=== PATIENT | female | born 1980 | race Caucasian/White ===

== ENCOUNTER 2018-08-16 16:18 | Emergency (ER) | payer OTHER ==
[~2018-08-16] VITALS: Ht 154.9 cm; Wt 72.1 kg
[2018-08-16 16:48] VITALS: Ht 154.9 cm; Wt 72.1 kg
[2018-08-16 18:11] LABS: BASOPHIL % 0.7 % (0-2); PLATELET COUNT 324 x10^3mcL (130-400); RED CELL DISTRIBUTION WIDTH 13.4 % (11.5-14.5)
[2018-08-16 18:14] LABS: CALCIUM 8.5 mg/dL (8.5-10.1); CARBON DIOXIDE 26.6 mmol/L (21-32); CHLORIDE SERUM 102 mmol/L (98-107); GFR1 > 60 mL/min; GLUCOSE SERUM 121 mg/dL (74-106); POTASSIUM SERUM 3.2 mmol/L (3.5-5.1); SODIUM SERUM 136 mmol/L (136-145)
[2018-08-16 18:18] LABS: ALBUMIN 3.6 g/dL (3.4-5.0); ALKALINE PHOSPHATASE 69 U/L (46-116); ALT/SGPT 20 U/L (14-59); AST/SGOT 12 U/L (15-37); BILIRUBIN TOTAL 0.52 mg/dL (0.20-1.00); PHOSPHOROUS 2.6 mg/dL (2.5-4.9); TOTAL PROTEIN, SERUM 8.1 g/dL (6.4-8.2); URIC ACID 3.6 mg/dL (2.6-6.0)
[2018-08-16 18:21] LABS: CHOLESTEROL 222 mg/dL (<200); HDL CHOLESTEROL 83 mg/dL (40-60)
[2018-08-16 19:23] VITALS: BP 112/78
== END 2018-08-16 19:23 | disposition home or self-care (01) ==
LOC: ED 16:18
PROVIDERS: Emergency Medicine
DX: R42 Dizziness and giddiness (principal); R10.13 Epigastric pain; Z88.1 Allergy status to other antibiotic agents
CPT/HCPCS: 36415; J1885; Q0092

== ENCOUNTER 2020-10-25 13:22 | Emergency (ER) | payer OTHER ==
[~2020-10-25] VITALS: Ht 157.5 cm; Wt 79.1 kg
[2020-10-25 13:42] VITALS: BP 101/65; Ht 157.5 cm; Wt 79.1 kg
[2020-10-25 16:20] LABS: BASOPHIL % 0.6 % (0.2-1.3); PLATELET COUNT 364 x10^3mcL (179-408); RED CELL DISTRIBUTION WIDTH 13.5 % (12.3-17.7)
[2020-10-25 16:36] LABS: CALCIUM 9.3 mg/dL (8.5-10.1); CARBON DIOXIDE 31.3 mmol/L (21-32); CHLORIDE SERUM 103 mmol/L (98-107); CREATININE SERUM 0.6 mg/dL (0.6-1.0); GFR1 > 60 mL/min; GLUCOSE SERUM 89 mg/dL (74-106); POTASSIUM SERUM 3.7 mmol/L (3.5-5.1); SODIUM SERUM 139 mmol/L (136-145)
[2020-10-25 16:47] LABS: FREE T4 1.09 ng/dL (0.76-1.46)
== END 2020-10-25 17:21 | disposition home or self-care (01) ==
LOC: ED 13:22
PROVIDERS: Emergency Medicine
DX: R42 Dizziness and giddiness (principal); E03.9 Hypothyroidism, unspecified; Z88.0 Allergy status to penicillin
CPT/HCPCS: 84439